=== PATIENT | female | born 1985 | race Two or more races ===

== ENCOUNTER 2024-12-04 20:20 | Emergency (ER) | payer OTHER ==
[~2024-12-04] VITALS: Ht 154.9 cm; Wt 95.8 kg
[2024-12-04 21:36] LABS: Urine Bacteria None Seen /hpf (None Seen)
[2024-12-04 21:47] LABS: Urine Blood 1+ /uL (Negative); Urine Clarity Turbid (Clear); Urine Color Yellow (Yellow); Urine Mucus FEW (None Seen); Urine Protein, UAD TRACE (Negative); Urine Specific Gravity 1.037 (1.001-1.035); Urine Squamous Epithelial Cell MOD /hpf (<5); Urine Urobilinogen 2 mg/dL (Negative); Urine WBC 1 /hpf (0 - 5); Urine pH 5.5 (5.0-9.0)
[2024-12-04] MEDS ORDERED: MYC15TP TOP (22:21)
--- NOTE | 2024-12-04 22:21 | ED.PDOC ---
History of Present Illness(SKN HPI Comments This is a 39-year-old female presents to the ED chief complaint rash. Complaining of a burning itchy rash to bilateral groin area she states symptoms have been going on for 2 weeks.. Has not tried [id number] relief measures. She denies dysuria, burning with urination, vaginal discharge, fever, chills, nausea vomiting, abdominal pain. Chief Complaint: Urinary Time Seen by MD: 21:06 History of Present Illness: Nurses Notes, Medications, Allergies Allergies: Coded Allergies: NO KNOWN ALLERGIES (Unverified , 12/04/24) Home Meds Active Scripts Nystatin-Triamcinolone (Mycolog) 1 Applic Ap, 1 APPLIC TOP BID for 7 Days, #15 GRAMS Prov:YULI MONTEIRO NAIL SPECIALIST 12/04/24 Information Source: Patient Mode of Arrival: Ambulatory Past Medical History PAST MEDICAL HISTORY: Denies Surgical History: Denies all surgeries HOME VISITOR [employer] History: No Pertinent HOME VISITOR [employer] History Family History Family History: Reviewed,noncontributory to illness Social History Smoker: Non-Smoker Alcohol: Occasionally Drugs: Denies Drug Use Constitutional: denies: chills, diaphoresis, fatigue, fever, malaise, sweats, weakness, others EENTM: denies: blurred vision, double vision, ear bleeding, ear discharge, ear drainage, ear pain, ear ringing, eye pain, eye redness, hearing loss, mouth pain, mouth swelling, nasal discharge, nose bleeding, nose congestion, nose pain, photophobia, tearing, throat pain, throat swelling, voice changes, others Respiratory: denies: cough, hemoptysis, orthopnea, SOB at rest, shortness of breath, SOB with excertion, stridor, wheezing, others Cardiovascular: denies: chest pain, dizzy spells, diaphoresis, Dyspnea on exertion, edema, irregular heart beat, left arm pain, lightheadedness, palpitations, PND, syncope, others Gastrointestinal: denies: abdomen distended, abdominal pain, blood streaked bowels, constipated, diarrhea, dysphagia, difficulty swallowing, hematemesis, melena, nausea, poor appetite, poor fluid intake, rectal bleeding, rectal pain, vomiting, others Genitourinary: denies: abnormal vagina bleeding, burning, dyspareunia, dysuria, flank pain, frequency, hematuria, incontinence, pain, , vagina discharge , urgency, others Neurological: denies: dizziness, fainting, headache, left sided numbness, left sided weakness, numbness, paresthesia, pre-existing deficit, right sided numbness, right sided weakness, seizure, speech problems, tingling, tremors, weakness, others Musculoskeletal: denies: back pain, gout, joint pain, joint swelling, muscle pain, muscle stiffness, neck pain, others Integumetry: reports: rash (Bilateral groin); denies: bruises, change in color, change in hair/nails, dryness, laceration, lesions, lumps, wounds, others Allergic/Immunocompromised: denies: Difficulty Healing, Frequent Infections, Hives, Itching, others Hematologic/Lymphatic: denies: anemia, blood clots, easy bleeding, easy bruising, swollen glands, others Endocrine: denies: excessive hunger, excessive sweating, excessive thirst, excessive urination, flushing, intolerance to cold, intolerance to heat, unexplained weight gain, unexplained weight loss, others Psychiatric: denies: anxiety, bipolar disorder, depression, hopeless, panic disorder, schizophrenia, sleepless, suicidal, others Physical Exam General Appearance: No Apparent Distress, Normal HEENT: Pharynx Normal Neck: Full Range of Motion, Non-Tender Respiratory: Lungs Clear, No Respiratory Distress, Normal Breath Sounds Cardiovascular: No Murmur, Normal Peripheral Pulses, Regular Rate/Rhythm Breast Exam: Deferred Gastrointestinal: Non Tender, Soft Genitalia: Deferred Pelvic: Deferred Rectal: Deferred Extremities: Normal capillary refill, Normal inspection, Normal range of motion, Non-tender, No pedal edema Musculoskeletal : Apperance: Normal Neurologic: Alert, process cheese cooker II-XII nml as Tested, No Motor Deficits, Normal Affect, Normal Mood, No Sensory Deficits Cerebellar Function: Normal Reflexes: Normal Skin: Dry, Normal Color, Rash (Erythemic macular rash to bilateral groin, noted excoriations open lesions or drainage.), Warm Lymphatic: No Adenopathy Was a procedure done? Was a procedure done?: No Differential Diagnosis (INTG) Differential Diagnosis: Cellulitis X-Ray, Labs, Meds, VS Vital Signs Date Time Temp Pulse Resp B/P (MAP) Pulse Ox O2 Delivery O2 Flow Rate FiO2 12/04/24 20:35 99.1 94 18 121/85 (97) 100 Lab Test 12/04/24 20:40 Range/Units Urine Color Yellow Yellow Urine Clarity Turbid H Clear Urine pH 5.5 5.0-9.0 Urine Specific [place]ner 1.037 H 1.001-1.035 Urine Protein Trace H Negative Urine Ketones Trace Negative Urine Blood 1+ H Negative /uL Urine Nitrite Negative Negative Urine Bilirubin Negative Negative Urine Urobilinogen 2 H Negative mg/dL Urine Leukocyte Esterase Trace Negative /uL Urine RBC 3 0 - 4 /hpf Urine WBC 1 0 - 5 /hpf Urine Squamous Epithelial Cells Mod <5 /hpf Urine Bacteria None seen None Seen /hpf Urine Mucus Few None Seen Urine Glucose Normal Normal mg/dL X-Ray, Labs, Meds, VS Comment Likely fungal. Trial of clotrimazole twice daily x7 days. Advised keep the area dry. Advised to follow up with her PCP 2-3 days as necessary. Return precautions given patient agrees with discharge plan of care. Time of 1ST Reevaluation: 22:17 Reevaluation 1ST: Unchanged Patient Education/Counseling: Diagnosis, Treatment, Prognosis, Need For Follow Up Family Education/Counseling: No Family Present Departure 1 Departure Time of Disposition: 22:18 Impression: Primary Impression: Fungal rash of torso Disposition: 01 HOME / SELF CARE / HOMELESS Condition: Stable e-Prescriptions Nystatin-Triamcinolone (Mycolog) 1 Applic Ap 1 APPLIC TOP BID for 7 Days, #15 GRAMS Prov: YULI MONTEIRO 12/04/24 Discharged With: Self Critical Care Note Critical Care Time?: No Stability Stability form required: YULI Nieves Dec 04, 2024 22:21
[2024-12-04 22:44] VITALS: BP 123/68; PULSE 91; RESP 18; TEMP 99.6; O2SAT 98
== END 2024-12-04 23:00 | disposition home or self-care (01) ==
LOC: ER 20:20
DX: B36.9 Superficial mycosis, unspecified (principal); Z79.899 Other long term (current) drug therapy
CPT/HCPCS: 81001